=== PATIENT | male | born 1965 | race Two or more races ===

== ENCOUNTER 2019-03-04 19:24 | Emergency (ER) | payer OTHER ==
[~2019-03-04] VITALS: Ht 180.3 cm; Wt 104.3 kg
[2019-03-05] MEDS ORDERED: LEVALBUTER1.25 MG/3 IH (00:10)
[2019-03-05] MEDS ORDERED: MUCINEX DM ER1 EAC1 PO (00:10)
[2019-03-05] MEDS ORDERED: MEDROLPACK PO (00:10)
[2019-03-05] MEDS ORDERED: TESSALON PERLE100 M1 PO (00:10)
[2019-03-05] MEDS ORDERED: BUDESONIDE0.5 MG/2 M IH (00:10)
== END 2019-03-05 00:20 ==
LOC: ER 19:24
DX: J06.9 Acute upper respiratory infection, unspecified (principal)

== ENCOUNTER 2021-11-03 08:29 | Emergency (ER) | payer OTHER ==
[~2021-11-03] VITALS: Ht 180.3 cm; Wt 113.4 kg
[~2021-11-03 08:29] MED LIST: BUDESONIDE0.5 MG/2 M IH; LEVALBUTER1.25 MG/3 IH; MEDROLPACK PO; MUCINEX DM ER1 EAC1 PO; TESSALON PERLE100 M1 PO
[2021-11-03] MEDS ORDERED: NORFLEX100MG PO (12:15)
[2021-11-03] MEDS ORDERED: KETO10TA2 PO (12:15)
== END 2021-11-03 13:04 | disposition home or self-care (01) ==
LOC: ER 08:29
DX: M54.50 Low back pain, unspecified (principal); M54.2 Cervicalgia

== ENCOUNTER 2023-08-20 11:46 | Emergency (ER) | payer OTHER ==
[~2023-08-20] VITALS: Ht 180.3 cm; Wt 72.6 kg
[~2023-08-20 11:46] MED LIST changes: +KETO10TA2 PO; +NORFLEX100MG PO
[2023-08-20] MEDS ORDERED: DICLOFENAC POTA50 MG PO (14:42)
== END 2023-08-20 14:56 | disposition home or self-care (01) ==
LOC: ER 11:47
DX: M79.671 Pain in right foot (principal); I10 Essential (primary) hypertension

== ENCOUNTER 2024-02-15 14:18 | Emergency (ER) | payer OTHER ==
[~2024-02-15] VITALS: Ht 180.3 cm; Wt 104.3 kg
[~2024-02-15 14:18] MED LIST changes: +DICLOFENAC POTA50 MG PO
== END 2024-02-15 16:49 | disposition home or self-care (01) ==
LOC: ER 14:19
DX: M79.604 Pain in right leg (principal)

== ENCOUNTER 2024-02-16 07:34 | Emergency (ER) | payer OTHER ==
[~2024-02-16] VITALS: Ht 180.3 cm; Wt 110.7 kg
== END 2024-02-16 11:37 | disposition home or self-care (01) ==
LOC: ER 07:35
DX: M79.606 Pain in leg, unspecified (principal); R53.81 Other malaise